=== PATIENT | female | born 1995 | race Caucasian/White ===

== ENCOUNTER 2019-06-20 01:19 | Emergency (ER) | payer OTHER ==
[~2019-06-20] VITALS: Ht 165.1 cm; Wt 96.0 kg
[2019-06-20 01:23] VITALS: BP_DIAS 68
[2019-06-20] MEDS ORDERED: ONDANSETRON ODT 8 MG ONE ×2 (01:42→02:03)
[2019-06-20 01:50] LABS: BASOPHILS # (AUTO) 0.02 x10^3/uL (0-0.1); BASOPHILS % (AUTO) 0 % (0-1); EOSINOPHILS # (AUTO) 0.02 x10^3/uL (0-0.4); EOSINOPHILS % (AUTO) 0 % (1-7); LYMPHOCYTES # (AUTO) 0.91 x10^3/uL (1-3.4); LYMPHOCYTES % (AUTO) 8 % (22-44); MD NO; MEAN CORPUSCULAR HEMOGLOBIN 29.3 pg (27.0-34.8); MEAN CORPUSCULAR HGB CONC 33.2 g/dL (32.4-35.8); MEAN CORPUSCULAR VOLUME 88.3 fL (80-100); MEAN PLATELET VOLUME 9.3 fL (7.4-10.4); MONOCYTES # (AUTO) 0.46 x10^3/uL (0.2-0.8); MONOCYTES % (AUTO) 4 % (2-9); NEUTROPHILS % (AUTO) 88 % (42-75); PLATELET COUNT 266 x10^3/uL (130-400); RED BLOOD COUNT 5.31 x10^6/uL (3.82-5.3); RED CELL DISTRIBUTION WIDTH 13.4 % (9.6-15.2)
[2019-06-20] MEDS ORDERED: ONDANSETRON ODT 8 MG PO PRN (02:00)
[2019-06-20 02:03] LABS: ALANINE AMINOTRANSFERASE 23 U/L (12-78); ANION GAP 7 mmol/L (5-15); CALCIUM 9.8 mg/dL (8.5-10.1); CHLORIDE 105 mmol/L (98-107); CREATININE 2.02 mg/dL (0.55-1.02)
--- NOTE | 2019-06-20 02:04 | NUR ---
PT STATED THAT SHE SWOLLOWED AND VOMITED WHOLE ZOFRAN, SL ZOFRAN GIVEN
[2019-06-20 02:08] LABS: ALKALINE PHOSPHATASE 79 U/L (45-117); BILIRUBIN,TOTAL 0.6 mg/dL (0.2-1.0); TOTAL PROTEIN 8.2 g/dL (6.4-8.2)
[2019-06-20 03:26] VITALS: BP_SYST 124
== END 2019-06-20 03:30 | disposition home or self-care (01) ==
LOC: ED 03:15
DX: R11.2 Nausea with vomiting, unspecified (principal)
CPT/HCPCS: 36415; 80053; 83690; 84703; 85025; 99283; Q0162

== ENCOUNTER 2019-06-22 11:31 | Emergency (ER) | payer OTHER ==
[~2019-06-22] VITALS: Ht 165.1 cm; Wt 96.6 kg
[2019-06-22 12:40] LABS: BASOPHILS # (AUTO) 0.02 x10^3/uL (0-0.1); BASOPHILS % (AUTO) 0 % (0-1); EOSINOPHILS # (AUTO) 0.16 x10^3/uL (0-0.4); EOSINOPHILS % (AUTO) 2 % (1-7); LYMPHOCYTES # (AUTO) 1.69 x10^3/uL (1-3.4); LYMPHOCYTES % (AUTO) 23 % (22-44); MD NO; MEAN CORPUSCULAR HEMOGLOBIN 29.9 pg (27.0-34.8); MEAN CORPUSCULAR HGB CONC 33.6 g/dL (32.4-35.8); MEAN CORPUSCULAR VOLUME 89.1 fL (80-100); MONOCYTES # (AUTO) 0.63 x10^3/uL (0.2-0.8); MONOCYTES % (AUTO) 8 % (2-9); NEUTROPHILS # (AUTO) 4.93 x10^3/uL (1.8-6.8); NEUTROPHILS % (AUTO) 66 % (42-75); PLATELET COUNT 261 x10^3/uL (130-400); RED BLOOD COUNT 4.97 x10^6/uL (3.82-5.3); RED CELL DISTRIBUTION WIDTH 13.4 % (9.6-15.2)
--- NOTE | 2019-06-22 12:45 | NUR ---
PRECEPTOR NOTE: ASSUMED CARE OF PT FROM LOBBY AT THIS TIME.
--- NOTE | 2019-06-22 12:53 | NUR ---
PATIENT BIB MY PARENT. REPORTS NAUSEA AND RIGHT FLANK AND RIGHT LOWER QUADRANT PAIN.
[2019-06-22 12:56] VITALS: BP 103/62
[2019-06-22 12:57] LABS: ANION GAP 6 mmol/L (5-15); CALCIUM 9.2 mg/dL (8.5-10.1); CHLORIDE 106 mmol/L (98-107); CREATININE 1.18 mg/dL (0.55-1.02)
[2019-06-22 13:05] LABS: MICROSCOPIC AUTO
[2019-06-22 13:11] LABS: CULTURE INDICATED? YES
--- NOTE | 2019-06-22 13:37 | NUR ---
PATIENT IN BED. MOTHER BEDSIDE. PATIENT HAS NO REQUESTS AT THIS TIME
--- NOTE | 2019-06-22 14:06 | NUR ---
PATIENT IS RESTING IN BED. AFTER CONVERSATION WITH DOCTOR THE PATIENT DECIDED AGAINST THE CT SCAN OF ABDOMEN. GOING TO GET A RX FOR ABX AND GO HOME.
== END 2019-06-22 14:14 | disposition home or self-care (01) ==
LOC: ED 12:45
DX: N30.00 Acute cystitis without hematuria (principal)
CPT/HCPCS: 36415; 80048; 81001; 82040; 84703; 85025; 87086; 99283